=== PATIENT | male | born 1990 | race African-American/Black ===

== ENCOUNTER 2020-09-20 13:13 | Emergency (ER) | payer OTHER ==
[~2020-09-20] VITALS: Ht 188 cm; Wt 97.5 kg
[~2020-09-20 13:13] MED LIST: ADDERALL 30 MG30 MG PO; AMOXICILLIN875 MG PO; IBUPROFEN 800800 MG PO; NOHOMEMEDICATIONS
[2020-09-20] MEDS ORDERED: NORCO5 PO (14:56)
[2020-09-20 15:06] VITALS: BP 123/76
== END 2020-09-20 15:10 | disposition home or self-care (01) ==
LOC: ER 13:13
DX: S52.612A Displaced fracture of left ulna styloid process, initial encounter for closed fracture (principal); S62.112A Displaced fracture of triquetrum [cuneiform] bone, left wrist, initial encounter for closed fracture; Z79.1 Long term (current) use of non-steroidal anti-inflammatories (NSAID); Z79.2 Long term (current) use of antibiotics; V49.9XXA Car occupant (driver) (passenger) injured in unspecified traffic accident, initial encounter; Y93.89 Activity, other specified; Y92.89 Other specified places as the place of occurrence of the external cause; Y99.8 Other external cause status